=== PATIENT | female | born 1970 | race Caucasian/White ===

== ENCOUNTER 2017-03-12 06:09 | Outpatient (CLI) | payer OTHER ==
[~2017-03-12] VITALS: Ht 165.1 cm; Wt 105.0 kg
--- NOTE | ~2017-03-12 | HP ---
PATIENT'S NAME: KATRIN REID [facility] AGE: 46 Y [address] ROOM: [place] [id number] LOCATION: [facility] ADMIT DATE: 03/12/2017 History & Physical DISCHARGE DATE: FAMILY PHYSICIAN: Chandler Jolly MD ATTENDING PHYSICIAN: Chandler Yu DATE OF SERVICE: HISTORY OF PRESENT ILLNESS: This is a 46-year-old female, who originally saw her primary care physician at [facility] in [place]. At that time, she was complaining of some discomfort between her shoulder blades that usually occurred with exertion. In addition, she was complaining of some shortness of breath with exertion. She had been seeing a chiropractor off and on with some relief of that discomfort. She had also been complaining of increased fatigued as well. She denied problems with orthopnea or PND. She denied palpitations, lightheadedness, or dizziness. There has been no report of presyncope or syncopal episodes. She underwent a stress test that was positive, and therefore, had a left heart catheterization today. Her heart catheterization showed three-vessel coronary artery disease. Therefore, she is being admitted for CABG. PAST MEDICAL HISTORY: 1. Hypertension. 2. Former tobacco use. 3. Obesity. 4. Anxiety. 5. Anemia thought to be related to heavy menstrual periods. 6. History of ERCP done at [place] in 2011. PAST SURGICAL HISTORY: Bile duct stone removal or ERCP in 2011. ALLERGIES: NONE TO MEDICATION. HOME MEDICATIONS: Included Excedrin. FAMILY HISTORY: Mother has history of an ICD placed. She has never had open heart surgery or heart stents. Father of cancer. REVIEW OF SYSTEMS: HEAD: No history of headaches. EYES: She denies any blurred vision. PATIENT'S NAME: KATRIN REID [facility] AGE: 46 Y [address] ROOM: [place] [address] LOCATION: [facility] ADMIT DATE: 03/12/2017 History & Physical DISCHARGE DATE: FAMILY PHYSICIAN: Chadnler Jolly MD ATTENDING PHYSICIAN: Chandler Yu EARS: No problems with hearing. NOSE: No epistaxis or rhinorrhea. MOUTH: No gingival bleeding. THROAT: She denies sore throat, hoarseness, or difficulty swallowing. PULMONARY: No history of cough or hemoptysis. She has had history of pneumothorax in the past in 2012 that was spontaneous. GASTROINTESTINAL: Negative for nausea, vomiting, or diarrhea. No melena or hematochezia. GENITOURINARY: Negative for urinary frequency or urgency. She does have nocturia 2 to 3 times at night. MUSCULOSKELETAL: No complaints of arthralgias or myalgias. NEUROLOGIC: She denies TIA or CVA symptomatology. PHYSICAL EXAMINATION: VITAL SIGNS: She is 5 feet 5 inches and weight is 104.4. Her blood pressure is 159/89, heart rate is 55, and temperature is 98. GENERAL: She is alert and oriented. SKIN: Warm, dry, and pink. HEENT: Pupils are equal, round, and react briskly. NECK: Soft and supple. No lymphadenopathy. No thyromegaly. JVD is flat. RESPIRATORY: Lung sounds were clear. CARDIOVASCULAR: Regular with a normal S1 and S2. ABDOMEN: Soft. Bowel sounds are present. EXTREMITIES: Showed no peripheral edema. No clubbing. No cyanosis. Distal pulses are 2+/4. LABORATORY DATA: Labs drawn on February 26, 2017 showed a creatinine of 1.07, sodium of 140, and potassium of 3.8. Her LDL at that time was 90. Hemoglobin was 10.8. OBSTETRICS/GYNECOLOGICAL HISTORY: Her last menstrual period was on 02/20/2017. DIAGNOSTIC STUDIES: EKG is showing a regular sinus rhythm. ASSESSMENT AND PLAN: 1. Coronary artery disease, three vessels. We will consult Cardiothoracic Surgery for evaluation of open heart surgery. 2. Hypertension. She currently is on metoprolol therapy. We will continue her current medications. 3. Hyperlipidemia. We will discuss starting a statin therapy. The assessment and plan, history of present illness, and physical exam are per Dr. Yu. PATIENT'S NAME: KATRIN REID [facility] AGE: 46 Y [address] ROOM: [id number] [place] [id number] LOC[facility]: [facility] ADMIT DATE: 03/12/2017 History & Physical DISCHARGE DATE: FAMILY PHYSICIAN: Chandler Jolly MD ATTENDING PHYSICIAN: Chandler Yu GINA ABEL MD TGP/modl /[id number] D: [id number] T: [id number] HISTORY & PHYSICAL
--- NOTE | ~2017-03-12 | CATH ---
Cardiac Diagnostic Report Demographics Patient Name JEANETTE Miguel Gender Female Date of 1970 Age 46 year(s) Patient Number [id number] Date of Study 03/12/2017 Visit Number [id number] Room Number [id number] [place] [id number] Ht 165.1 cm Wt 104.4 kg Referring Aimee Arteaga MD Primary Physician Physician Rik Arteaga MD Performing Aimee Arteaga MD Secondary Physician Physician Diagnostic Aimee Arteaga MD Assisting Physician Physician Interventional Physician Business Initiatives Manager Physician Findings and Conclusions Diagnostic Findings and Conclusion 3 vessel CAD Diagnostic Recommendations CT surgery consult for CABG Procedure Description The patient was brought to the diagnostic cardiac catheterization-EP laboratory in the fasting, non-sedated state. Informed consent was obtained in the written and verbal form after the risks and benefits were explained. The patient had no further questions and agreed to proceed. The planned puncture-incision site(s) were shaved and prepped with ChloraPrep and draped in the usual sterile manner. Conscious sedation, supplemental oxygen, and pain control medications were delivered by a registered nurse under physician guidance. Surface ECG rhythm, blood pressure measurement, and pulse oximetry were monitored throughout the procedure. Arterial access. The access site was infiltrated with lidocaine. The vessel was entered with the Seldinger technique. A sheath was advanced into the vessel and used for catheter placement. Selective left coronary angiography. A catheter was advanced into the left coronary vessel ostium under Fluoroscopic guidance. Contrast was injected by hand. Images were obtained in multiple projections. Selective right coronary angiography. A catheter was advanced into the right coronary vessel ostium under fluoroscopic guidance. Contrast was injected by hand. Images were obtained in multiple projections. Left heart catheterization with ventriculography. A catheter was advanced across the aortic valve to the left ventricle under fluoroscopic guidance. Resting hemodynamics were obtained. With the catheter at the left ventricular apex, contrast was injected. Images were obtained in INDONESIAN projections. Post-ventriculography LV pressure was obtained. The catheter was gradually withdrawn into the aorta with continuous pressure recording. Arterial artery hemostasis was achieved. The patient was transferred to a regular nursing floor via cart accompanied by a nurse. The patient left the laboratory in stable condition. Diagnostic Cath Status: Elective Procedure Procedure Type Diagnostic procedure:Ventriculogram:, Left, Angiography:, Coronary Angios w/[facility] Indications: Positive nuclear perfusion study. The procedure was explained in detail to the patient. Risks, complications and alternative treatments were reviewed. Written consent was obtained. Medications Reviewed with Patient prior to Procedure. Angiographic Findings Dominance: Right Cardiac Arteries and Lesion Findings LMCA: Normal (0% Stenosis).Large ok. LAD: LAD Large proximal, mid eccentric 75% Diagonal 1 small ok Diagonal 2 small Lesion on Mid LAD: 75% stenosis . LCx: Circumflex large, mid 100% with L-L collaterals. OM1 small Ok Lesion on Mid CX: 100% stenosis . RCA: RCA large, mid subtotaled with L to R collaterals PL medium ok PDA medium, ok Lesion on Mid RCA: 100% stenosis . Coronary Tree Procedure Data Procedure Date Date: 03/12/2017Start: 07:56 AMEnd: 08:31 AM Entry Locations - Retrograde Percutaneous access was performed through the Right Femoral artery (Primary location). A 6 Fr sheath was inserted. Closure Comments: Deployed by [facility]. Procedure Medications Order and Administration + + +-------+------+ !Time !Medication !Dosage !Route ! + + +-------+------+ !03/12/2017 07:52 AM !Versed !1 mg !I.V. ! + + +-------+------+ !03/12/2017 07:46 AM !Fentanyl !50 mcg !I.V. ! + + +-------+------+ !03/12/2017 08:20 AM !Fentanyl !50 mcg !I.V. ! + + +-------+------+ Devices Used - A6 Fr. BS JL 4 Diag. Catheterwas used for:Left coronary angiography. - A6 Fr. BS JR 4 Diag. Catheterwas used for:Right coronary angiography. - A6 Fr. BS Angled Pigtail Diag. Catheterwas used for:Left ventriculography. Contrast Material - Isovue 38823 ml Fluoroscopy Time: Diagnostic: 3:06 minutes. Total: 3:06 minutes. Fluoroscopy Dose: Diagnostic: 1226 mGy. Total: 1226 mGy. Estimated Blood Loss: 4 ml. Medical History Allergies - No known allergies. Risk Factors The patient risk factors include:treated hypertension, last creatinine: 1 mg/dl, creatinine clearance: 113.39 ml/min and former tobacco use. Admission Data Admission Date: 03/12/2017 Admission Time: 06:09 AM Admit Source: Other Insurance Payors: Private health insurance. Admission Medications + +------+------+ + + + + !Medication !Dosage!Times !Last !Last !Administered !Comments ! ! ! !Per !Delivery !Delivery ! ! ! ! ! !Day !Date !Time ! ! ! + +------+------+ + + + + !Beta ! ! ! ! !Yes ! ! !Osmar ! ! ! ! ! ! ! !(any) ! ! ! ! ! ! ! + +------+------+ + + + + Clinical Evaluation Leading to Procedure - The patient's CAD presentation was assessed as: Unstable angina. - The patient's anginal syndrome during the past two weeks was assessed as: Class III according to the [place] Cardiovascular Society Classification System (CCS). Anti-anginal medications were prescribed during the past two weeks. The medication is: Beta Blockers. VA LV function assessed . Ejection Fraction - 03/12/2017 - Method: LV gram. EF%: 45. LVA Segment Contractility 1 - Normal 3 - Mild 5 - Severe 7 - Dyskinesis hypokinesis hypokinesis 2 - 4 - Moderate 6 - Akinesis 8 - Aneurysm Hypokinesis hypokinesis Hemodynamics Condition: Rest O2 Consumption: Estimated: 195.91Heart Rate: 56 bpm Pressures (mmHg) +-----+ + !Site !Pressure ! +-----+ + !AO !162/91 (120) ! +-----+ + !AO !156/88 (115) ! +-----+ + !LV !153/11 ,22 ! +-----+ + !LV !153/11 ,26 ! +-----+ + !LV !151/13 ,26 ! +-----+ + !AO !148/81 (110) ! +-----+ + !LV !150/13 ,25 ! +-----+ + Valve Gradients and Areas + +---------+---------+---------+ +---------+ + !Valve !Peak !Mean !Area !Index !Flow !Source ! + +---------+---------+---------+ +---------+ + !Aortic !2 !0 ! ! ! ! ! + +---------+---------+---------+ +---------+ + !Aortic !2 !0 ! ! ! ! ! + +---------+---------+---------+ +---------+ + Shunts Oxygen Values O2 Capacity 146.88 O2 Consumption 195.91 Discharge Data Discharge Date: 03/13/2017 Hospital Status: Outpatient Signatures dtt: Chandler Yu (cardio) dtd: 03/12/17 [id number] Physician Self Edit
[~2017-03-12 06:09] MED LIST: EXCEDRIN EXTRA1 TAB PO; IRON325 M1 PO; LOPRESSOR50 MG PO
[2017-03-12] MEDS ORDERED: TRAMADOL HCL50 MG PO (06:32)
--- NOTE | 2017-03-12 17:55 | NUR ---
Patient received from Cardiac Ore Bridge Operator this shift. She has mulit vessel disease and needs a 2 vessel CABG. R. groin site soft/no bruising with gauze/tegaderm dressing in place. Good CMS to R. foot/leg. C/O soreness in R. groin with ambulation. Room air. SR per telemetry. Patient states " I can't have that bad of heart disease. I want to go home." Waiting for Dr Hollingsworth to speak to patient.
--- NOTE | 2017-03-13 04:01 | NUR ---
Significant events: Pt A/Ox3. VSS. No complaints of pain. Up ad george. On RA. R) groin CDI, no hematoma. Home today with CABG to be scheduled for later date. NANDA.
[2017-03-13] MEDS ORDERED: ISORDIL10 MG PO ×2 (06:35→10:13)
== END 2017-03-13 11:20 | disposition disaster alternative care site (69) ==
LOC: GCAT 06:09 → GPCU 06:09 → GCAT 03-13 11:20
PROC: B2111ZZ Fluoroscopy of Multiple Coronary Arteries using Low Osmolar Contrast (ICD-10-PCS; principal; 2017-03-12)
PROC: B2151ZZ Fluoroscopy of Left Heart using Low Osmolar Contrast (ICD-10-PCS; principal; 2017-03-12)
PROC: 4A023N7 Measurement of Cardiac Sampling and Pressure, Left Heart, Percutaneous Approach (ICD-10-PCS; principal; 2017-03-12)
DX: I25.10 Atherosclerotic heart disease of native coronary artery without angina pectoris (principal); I10 Essential (primary) hypertension; Z87.891 Personal history of nicotine dependence
CPT/HCPCS: C1760; J1644; J2001; J2250; J3010; J7030